=== PATIENT | female | born 1935 | race Caucasian/White ===

== ENCOUNTER 2017-09-23 06:53 | Inpatient (IN) ==
--- NOTE | 2017-09-22 20:33 | Discharge Summary ---
<Blanca Chiu - Last Filed: 09/22/17 20:29> Date of Encounter: 09/22/17 - Discharge Diagnosis (1) Rotator cuff tear arthropathy of right shoulder Priority: Primary Status: Acute (2) Status post reverse arthroplasty of right shoulder Priority: Primary Status: Acute (3) HTN (hypertension) Priority: Secondary Status: Chronic Qualifiers: Hypertension type: essential hypertension Qualified Code(s): I10 - Essential (primary) hypertension (4) Obesity Priority: Secondary Status: Chronic Qualifiers: Obesity type: due to excess calories Obesity classification: unspecified obesity classification Serious obesity comorbidity presence: without serious comorbidity Qualified Code(s): E66.09 - Other obesity due to excess calories (5) Left bundle branch block (LBBB) Priority: Secondary Status: Chronic - Hospital Course Hospital course: Ms. Edwards is a 81 year old female - Time Spent with Patient Total time spent providing and/or coordinating discharge services: - Discharge Medications Home Medications: OxyCODONE Immed Rel [Roxicodone 5 MG] 5 mg PO Q6HR PRN 7 Days #28 tablet [Rx] Acetaminophen [Tylenol] 325 mg PO Q4H PRN 09/23/17 [History] Calcium Carbonate/Vitamin D3 [Calcium 600 + Vit D Tablet] 1 tab PO DAILY [History] Docusate Sodium [Dok] 100 mg PO BID 09/23/17 [History] Lansoprazole [Prevacid] 30 mg PO DAILY 09/23/17 [History] Losartan Potassium [Cozaar] 50 mg PO DAILY 09/23/17 [History] Meloxicam [Mobic] 7.5 mg PO DAILY 09/23/17 [History] hydroCHLOROthiazide [Hydrochlorothiazide] 25 mg PO DAILY 09/23/17 [History] Allergies/Adverse Reactions: 3 Allergy/AdvReac Type Severity Reaction Status Date / Time No Known Allergies Allergy Verified 04/27/16 10:11 Primary care physician: Gina Amaro - Patient Status Disposition: Transfer Inpatient Rehab Fac Condition: Good - Discharge Instructions Follow Up With: Gina Amaro MD [Primary Care Provider] - <Blue Crawley - Last Filed: 09/26/17 05:54> Orders not resulted at time of discharge: Pending orders 09/23/17 US anesthesia pain block [US] Routine 09/23/17 00:01 XR shoulder complete RT [XR] Routine H/H [Hemoglobin and Hematocrit] [HEME] Routine Date of Encounter: 09/26/17 Time of Encounter: 05:54 - Discharge Diagnosis (1) Morbid obesity with BMI of 40.0-44.9, adult Priority: Secondary Status: Chronic (2) Rotator cuff tear arthropathy of right shoulder Priority: Primary Status: Chronic (3) Status post reverse arthroplasty of right shoulder Priority: Primary Status: Acute (4) HTN (hypertension) Priority: Secondary Status: Chronic Qualifiers: Hypertension type: essential hypertension Qualified Code(s): I10 - Essential (primary) hypertension (5) Left bundle branch block (LBBB) Priority: Secondary Status: Chronic - Hospital Course Hospital course: Ms. Edwards is a 81 year old female Status post right total shoulder replacement The patient had an uneventful postoperative course. They received antibiotics and physical therapy and were discharged in stable condition. There will follow -up in the office in 2 weeks. - Time Spent with Patient Total time spent providing and/or coordinating discharge services: Primary care physician: Gina Amaro - Patient Status Functional capacity at discharge: independent ambulation Overall status at discharge: patient is progressing back to baseline
--- NOTE | 2017-09-22 21:33 | Physician Discharge Referral ---
ExtendedCare Referral Info Transfer To: [facility] Provider in Charge: Provider in Charge after Transfer: PCP Institutional Level of Care: Skilled - Diagnosis (1) Rotator cuff tear arthropathy of right shoulder Priority: Primary Status: Acute (2) Status post reverse arthroplasty of right shoulder Priority: Primary Status: Acute (3) HTN (hypertension) Priority: Secondary Status: Chronic (4) Obesity Priority: Secondary Status: Chronic (5) Left bundle branch block (LBBB) Priority: Secondary Status: Chronic Expected Duration of Placement: < 30 days Prognosis: Good Aware of Diagnosis: Patient Aware of Prognosis: Patient - Transfer Medications Prescriptions: OxyCODONE Immed Rel [Roxicodone 5 MG] 5 mg PO Q6HR PRN 7 Days #28 tablet PRN Reason: Pain Home Medications: OxyCODONE Immed Rel [Roxicodone 5 MG] 5 mg PO Q6HR PRN 7 Days #28 tablet [Rx] Allergies/Adverse Reactions: 3 Allergy/AdvReac Type Severity Reaction Status Date / Time No Known Allergies Allergy Verified 04/27/16 10:11 - Respiratory Orders None Smoking Cessation: Smoking cessation has been advised. For more information, call the [place] Tobacco Quit Line at 5-594-NBQW-NOW. - Ancillary Orders May use pressure relief devices daily prn, May go on MICHAEL w/family/respon libertarian w /meds at nurse discretion PRN, May consult with Dentist, Sales Order Administrator, Rewinder Operator Helper PRN - Mobility Orders Ambulate - Rehabiliation Orders Rehab Potential: Good Rehab Orders: ROM Exercises, Evaluation for Physical Therapy, Evaluation for Occupational Therapy - Treatments Skin tear care topically daily PRN per policy List/Other: SHOULDER continuity: Opsite dressing, leave intact until first post-operative visit. If dressing becomes >50% saturated, contact office, remove dressing and place appropriate dressing in its place. Do not allow for dressing to get wet. Shoulder Precautions x 6 weeks. Apply cold therapy wrap 3-6x/day for 20 minutes at a time. Encourage ambulation throughout the day. Use Incentive spirometer 10x/hour. Elevate affected extremity above heart as tolerated. NWB to affected upper extremity x 6 weeks. Will remove brace at first post-operative appointment. OK to remove during PT/ OT and Home exercises. - Diet Orders Regular CERTIFICATION: I certify that the transfer of the above named patient to an Extended Care Facility is necessary for the continuing treatment of the diagnosis listed. The above information is true and accurate reflection of patient's current condition. Confidential - Redisclosure prohibited without a patient's written consent.
--- NOTE | 2017-09-23 07:47 | History & Physical Report ---
Date of Encounter: 09/23/17 Time of Encounter: 07:46 24 Hour HP Update - Instructions Instructions: If the History and Physical is less than 30 days old and was completed prior to A.M. admission and or procedure and has NOT been updated on calendar day of procedure please complete this update prior to performing procedure. - Update Patient reports changes in Medical Condition: No Changes in examination, assessment, or condition: No Changes in Medication: No Preop tests/diagnostics Reviewed: Yes Surgery Remains Indicated: Yes Consent for Planned Operative Procedure(s) Verified: Yes - Pre-Operative Checklist Preoperative Checklist Indicated: No Prophylactic Antibiotic Ordered: Yes Is VTE Prophylaxis Indicated?: Yes
[2017-09-23] MEDS ORDERED: CeFAZolin Syr 2,000MG/20 ML 2,000 MG/20 ML SYRINGE IVPB ONE (07:48)
--- NOTE | 2017-09-23 07:53 | Anesthesia Evaluation PreOp ---
Date of Encounter: 09/23/17 Time of Encounter: 07:50 - Past History Planned Operation: Right Total Shoulder Cardiac History: HTN Pulmonary History: Denies Any Significant HX LEAD PROGRAMMER History: Denies Any Significant HX Other Medical History: Renal (CRI), GERD, Other (Melanoma arm. [place] BMI-44.6) Anesthesia History: No Prior Anesthetic Complications, Past Anesthesia (GB, R, TKR,R. THR, hernia, L. TSR) : No Alcohol Use: none Drug use: none Medications and Allergies OxyCODONE Immed Rel [Roxicodone 5 MG] 5 mg PO Q6HR PRN 7 Days #28 tablet [Rx] Acetaminophen [Tylenol] 325 mg PO Q4H PRN 09/23/17 [History] Calcium Carbonate/Vitamin D3 [Calcium 600 + Vit D Tablet] 1 tab PO DAILY [History] Docusate Sodium [Dok] 100 mg PO BID 09/23/17 [History] Lansoprazole [Prevacid] 30 mg PO DAILY 09/23/17 [History] Losartan Potassium [Cozaar] 50 mg PO DAILY 09/23/17 [History] Meloxicam [Mobic] 7.5 mg PO DAILY 09/23/17 [History] hydroCHLOROthiazide [Hydrochlorothiazide] 25 mg PO DAILY 09/23/17 [History] 3 Allergy/AdvReac Type Severity Reaction Status Date / Time No Known Allergies Allergy Verified 04/27/16 10:11 - Meds/Allergy Pre-op Review Medications Reviewed: Yes Allergies Reviewed: Yes Beta Blockers on Current Med List: No Anesthesia Results - Labs Laboratory Tests 08/01/16 09/10/17 09/10/17 12:51 14:16 14:16 WBC 8.1 Hgb 14.4 Hct 45.3 H Plt Count 213 INR 1.0 Sodium Potassium Chloride Carbon Dioxide BUN Creatinine Glucose 97 BUN/Creatinine Ratio 09/10/17 14:16 WBC Hgb Hct Plt Count INR Sodium 143 Potassium 4.8 Chloride 106 Carbon Dioxide 28 BUN 25 H Creatinine 1.35 H Glucose BUN/Creatinine Ratio 19 ECHO 09/25 EF-55% Mild diastolic dysfunction PFO Mod pulm. HTN Mod TR - Imaging EKG: report reviewed (SINUS RHYTHM LOW QRS VOLTAGE IN EXTREMITY LEADS INFERIOR MYOCARDIAL INFARCTION, PROBABLY OLD) Anesthesia Exam O2 Sat Height 1.55 m Height 1.55 m Weight 107.048 kg Weight 107.048 kg O2 Sat by Pulse Oximetry 93 Vital Signs Temp Pulse Resp BP Pulse Ox 98.1 F 86 18 150/80 93 09/23/17 07:20 09/23/17 07:20 09/23/17 07:20 09/23/17 07:20 09/23/17 07:20 NPO (# of Hours): > 8 hrs Pain Scale: 0 Pain Scale Used: Numeric (1 - 10) - HEENT Pupil (Motor): Pupils equal, EOMI Mallampati: II Teeth: Normal Oral Opening: Greater than 3 - LEAD PROGRAMMER LOC: Oriented LEAD PROGRAMMER Motor: Normal RUE, Normal LUE, Normal RLE, Normal LLE, Normal Face LEAD PROGRAMMER Sensory: Normal: RUE, LUE, RLE, LLE, Face - Cardiac Rhythm: Regular Murmur: None JVD: No Carotid Bruit: No - Pulmonary Breath Sounds: bilateral Clear Respiratory Effort: Symmetrical Anesthesia Assess/Plan ASA Score: 3 Modified Gerald Scale for Level of Consciousness: Cooperative, oriented, and tranquil Anesthetic Plan: General, Regional Autologous Blood: Yes Monitoring Plan: Standard Monitors Recovery Plan: PACU
[2017-09-23] MEDS ORDERED: Plasma-Lyte A (PH 7.4) 1,000 ML IVC SCH (08:00)
[2017-09-23] MEDS ORDERED: Lidocaine -MPF 4% 5 ML AMPUL ONE (08:04)
[2017-09-23] MEDS ORDERED: Lidocaine -MPF 2% 2 ML VIAL ONE (08:04)
[2017-09-23] MEDS ORDERED: Dexamethasone 4 MG/ML VIAL ONE (08:04)
[2017-09-23] MEDS ORDERED: *HR* Succinylcholine 200 MG/10 ML VIAL IVP ONE (08:04)
[2017-09-23] MEDS ORDERED: Ondansetron 4 MG/2 ML VIAL ONE (08:04)
[2017-09-23] MEDS ORDERED: *HR* Propofol 200 MG/20 ML VIAL IVP ONE (08:05)
[2017-09-23] MEDS ORDERED: *HR* Midazolam HCl 2 MG/2 ML VIAL ONE (08:05)
[2017-09-23] MEDS ORDERED: *HR* FentaNYL (PF) 100 MCG/2 ML VIAL ONE (08:05)
[2017-09-23] MEDS ORDERED: ROPIVACAINE HCL/PF 0.5% 30 ML VIAL ONE (08:38)
[2017-09-23] MEDS ORDERED: *HR* PHENYLEPHRINE 1,000 MCG/10 ML SYRINGE IVP ONE (09:17)
[2017-09-23] MEDS ORDERED: Ondansetron 4 MG/2 ML VIAL IVP ONE (09:25)
[2017-09-23] MEDS ORDERED: *HR* Meperidine 25 MG/ML SYRINGE IVP PRN (09:25)
[2017-09-23] MEDS ORDERED: *HR* OxyCODONE Immed Rel 5 MG TABLET PO PRN ×3 (09:25→11:06)
[2017-09-23] MEDS ORDERED: MORPHINE SUL Oral CONC 10 MG/0.5 ML ORAL.SYG SL PRN (09:25)
[2017-09-23] MEDS ORDERED: *HR* Promethazine 25 MG/ML VIAL IVP PRN (09:25)
--- NOTE | 2017-09-23 09:29 | Anesthesia Procedures ---
Date of Encounter: 09/23/17 Time of Encounter: 08:45 Procedures: Anesthesia - Nerve Block Procedure Date: 09/23/17 Time: 08:45 Allergies/Adv Reactions: No Known Allergies Allergy (Verified 04/27/16 10:11) Surgical Procedure: right total shoulder Checklist: Correct Patient Identifier, Correct procedure, History checked Correct side: Right Blood Thinner: No Monitor Applied: EKG, BP, Pulse Oximetry Supplemental Oxygen via Nasal Cannula (L/min): 2 Sedation: Versed (mg): 2 Sedation: Fentanyl (mcg): 50 Indication: Post Op Analgesia Pre-op Neuro Deficits: No Block Type: Supraclavicular Catheter placed: No Sterile Technique: Yes Ultrasound used: Yes Anatomy identified: Yes Visual spread of Local: Yes Neuro Stimulation: No Blood on Needle Aspiration: No Smooth Injection of Local: Yes Pain with Injection of Local: No Prep: Chlorhexadine Needle: 22 x 50 mm Stimuplex Local: Ropivacaine (0.5% Ropi 30ml with 10mg Decadron) Volume (cc): 32 Number of Attempts: 1 Complications: None/effective block Vitals: Vital Signs/O2 Sat, Most Current Temp Pulse Resp BP Pulse Ox 98.1 F 71 18 165/83 97 09/23/17 07:20 09/23/17 08:57 09/23/17 08:57 09/23/17 08:57 09/23/17 08:57
[2017-09-23] MEDS ORDERED: EPHEDrine 50 MG/ML VIAL ONE (09:32)
--- NOTE | 2017-09-23 09:34 | Anesthesia Procedures ---
Date of Encounter: 09/23/17 Time of Encounter: 08:45 Procedures: Anesthesia - Nerve Block Procedure Date: 09/23/17 Time: 08:45 Allergies/Adv Reactions: No Known Allergies Allergy (Verified 04/27/16 10:11) Surgical Procedure: /ru
--- NOTE | 2017-09-23 09:58 | Orthopedic Operative Note ---
Date of procedure: 09/23/17 Pre-op diagnosis: Right shoulder cuff tear arthropathy Post-op diagnosis: same Procedure: Procedure: Total Shoulder Replacment Reverse, right Estimated blood loss: 100 cc Hardware: Metal and polyethylene replacement: Arthrex large glenoid baseplate, 2 4.5 screws. 1 6.5 screw, 42+4 glenosphere, 9 humeral stem, poly insert 3 Exam Under anesthesia: Full motion no instability Procedural Notes: Grade 4 arthritic changes humeral head glenoid socket, rotator cuff tear. Operative procedure: The patient was brought to the operating room and placed on the operating room table. After general anesthesia was administered the operative shoulder was examined. Findings were noted. The patient was placed in the modified beachchair position. All pressure points were padded appropriately. And the head was stabilized in the neutral position. The operative extremity was prepped and draped in the sterile surgical fashion. The patient received IV antibiotics prior to skin incision. A standard deltopectoral approach was made to the operative shoulder. Incision was made to the skin and subcutaneous tissue,hemo stasis was obtained with Bovie cautery. Using careful blunt dissection the cephalic vein was identified and mobilized medially. The deltopectoral interval was developed and the clavipectoral fascia was incised. The subscap was released off the lesser tuberosity and tagged with #2 FiberWire suture subscap was irreparable. The humerus was dislocated patient noted to have irreparable tear supraspinatus tendon, and the humeral cut was made along the anatomic neck. Patient noted to have grade 4 arthritic changes humeral head. Anterior and posterior Bankart retractors were placed to expose the glenoid. Patient noted to have grade 4 arthritic changes glenoid socket. The glenoid guide was seated and the centering hole was made. It was reamed with the appropriate reamer. The large baseplate was seated and secured with (2) 4.5 screws and one 6.5 screw. The baseplate was irrigated and dried and the 42+4 Glenosphere was seated and secured with the Lennon taper. The Lennon taper was tested and found to be secure the humerus was redislocated and prepared with the diaphyseal reamers, followed by a broaching process up to the appropriate size 9 in the patient's anatomic version. The metaphyseal reamer was then utilized. Trial reduction found the shoulder to be relocatable. Trial components were removed and The appropriate 9 stem was impacted in place in the patient's anatomic version. Trial reduction found the shoulder to be relocatable and stable with the appropriate 3 Thuy Trial component was removed and the real implant was seated and secured the shoulder was reduced. The shoulder had excellent motion and excellent stability and no evidence of dislocation. The deep tissue was irrigated with pulse irrigation. The shoulder was closed by the PA. The deltopectoral interval was closed with a running #1 PDS suture, subcutaneous tissue was irrigated and closed with 0 PDS suture, the skin was closed with Dermabond. The patient was placed in a sterile dressing, abduction brace and extubated. The patient was then transferred to the recovery room in stable condition. Anesthesia: GENESIS Surgeon: Blue Crawley Was there an assistant editor present: Yes Band Sawmill Operator: Jenny Mclaughlin Estimated blood loss (cc): 100 Condition: stable Disposition: PACU
--- NOTE | 2017-09-23 10:44 | Anesthesia Evaluation Post Op ---
Date of Encounter: 09/23/17 Time of Encounter: 10:43 - Vital Signs Vital Signs: Vital Signs/O2 Sat, Most Current Temp Pulse Resp BP Pulse Ox 97.4 F L 83 18 140/69 96 09/23/17 10:17 09/23/17 10:37 09/23/17 10:37 09/23/17 10:37 09/23/17 10:37 - Lungs Lungs: Clear Ascult./Percussion - Airway Airway: Non-obstructed - Cardiovascular Regular Rate - Mental Status Mental Status: Alert & Oriented, Answers Appropriately - Pain Pain Scale: 0 Pain Scale used: Numeric (1 - 10) - Nausea Vomiting Nausea Vomiting: Not Present - Hydration Hydration: Ice chips, Has not voided - Discharge PostOp Status: Transfer Patient to floor
[2017-09-23 10:46] LABS: Hematocrit 41.9 % (35.3-44.9); Hemoglobin 13.8 g/dL (11.5-15.4)
[2017-09-23] MEDS ORDERED: Ondansetron 4 MG/2 ML VIAL IVP PRN (11:06)
[2017-09-23] MEDS ORDERED: Naloxone 0.4 MG/ML INJ IVP PRN (11:06)
[2017-09-23] MEDS ORDERED: MOM Conc 10 ML UD.LIQ PO PRN (11:06)
[2017-09-23] MEDS ORDERED: Temazepam 15 MG CAPSULE PO PRN (11:06)
[2017-09-23] MEDS ORDERED: Sennosides 8.6 MG TABLET PO PRN (11:06)
[2017-09-23] MEDS ORDERED: Ringers Solution, Lactated 1,000 ML IVC SCH (11:06)
[2017-09-23] MEDS: hydroCHLOROthiazide 25 MG TABLET PO SCH (13:02)
[2017-09-23] MEDS: CeFAZolin Premix DUPLEX 2,000 MG/50 ML BAG IVPB SCH ×2 (14:43→23:20)
[2017-09-23] MEDS ORDERED: *HR* Enoxaparin 30 MG/0.3 ML SYRINGE SQ SCH (18:00)
[2017-09-23] MEDS: *HR* Enoxaparin 30 MG/0.3 ML SYRINGE SQ SCH (18:12)
[2017-09-24] MEDS: *HR* Enoxaparin 30 MG/0.3 ML SYRINGE SQ SCH ×2 (04:44→16:45)
--- NOTE | 2017-09-24 06:24 | Orthopedics Progress Note ---
Date of Encounter: 09/24/17 Time of Encounter: 06:23 - Assessment and Plan (1) Morbid obesity with BMI of 40.0-44.9, adult Current Visit: Yes Status: Chronic (2) Rotator cuff tear arthropathy of right shoulder Current Visit: No Status: Chronic (3) Status post reverse arthroplasty of right shoulder Current Visit: No Status: Acute (4) HTN (hypertension) Current Visit: No Status: Chronic Qualifiers: Hypertension type: essential hypertension Qualified Code(s): I10 - Essential (primary) hypertension (5) Left bundle branch block (LBBB) Current Visit: No Status: Chronic Subjective Interval history: Patient was seen this morning doing well without complaints. Afebrile vital signs stable. Operative extremity: Neurovascularly intact Dressing clean dry and intact Calves nontender Assessment and plan: Continue with postoperative care Hematocrit 41 Objective Vital signs: Vital Signs Temp Pulse Resp BP Pulse Ox 09/24/17 03:50 97.6 F 78 18 127/76 95 09/24/17 00:21 98.3 F 79 18 114/71 93 09/23/17 19:09 97.7 F 99 16 124/82 93 09/23/17 14:39 97.9 F 87 16 136/77 93 09/23/17 13:40 98.4 F 89 16 147/79 90 09/23/17 13:09 98.0 F 99 16 142/84 93 09/23/17 12:04 97.1 F L 84 16 121/85 95 09/23/17 11:32 97.6 F 90 16 138/80 94 09/23/17 11:28 95 09/23/17 10:47 97.2 F L 90 18 126/86 95 09/23/17 10:37 83 18 140/69 96 09/23/17 10:27 96 16 144/74 95 09/23/17 10:17 97.4 F L 97 14 110/94 96 09/23/17 08:57 71 18 165/83 97 09/23/17 08:42 75 18 168/84 96 09/23/17 07:20 98.1 F 86 18 150/80 93 Intake and Output 09/23/17 09/23/17 09/24/17 15:59 23:59 07:59 Intake Total 20 / 20 100 / 100 100 / 100 Output Total 100 / 100 0 / 0 0 / 0 Balance -80 / -80 100 / 100 100 / 100 Intake: IV Fluids 20 / 20 100 / 100 Ancef Premix DUPLEX 2,000 mg In 100 / 100 50 ml @ 100 mls/hr IVPB Q8HR TIESHA Rx#:[id number] Ancef Syringe 2,000 MG/20 ML 2, 20 / 20 000 mg In 20 ml @ 200 mls/hr IVPB PREOP ONE Rx#:[id number] Oral 0 / 0 0 / 0 100 / 100 Output: Urine 0 / 0 0 / 0 0 / 0 Estimated Blood Loss 100 / 100 Other: # Voids 1 1 Blood Glucose* 209 - Labs CBC & BMP: 09/23/17 10:29 Labs: Abnormal lab results POC Glucose 209 (58-89) H 09/23/17 20:29 - VTE Documentation of Mechanical Device: Venous foot pump, device Consult Discharge Plan - Plan Referrals: Gina Amaro MD [Primary Care Provider] -
[2017-09-24 06:35] LABS: Hematocrit 39.5 % (35.3-44.9)
[2017-09-24] MEDS: Cholecalciferol (D-3) 1,000 UNIT TABLET PO SCH (09:27)
[2017-09-24] MEDS: hydroCHLOROthiazide 25 MG TABLET PO SCH (09:28)
--- NOTE | 2017-09-24 15:27 | Event Note ---
Date of Encounter: 09/24/17 Time of Encounter: 12:00 PCR - POD#1 R TSR-r. Patient seen at bedside. Labs reviewed. Pain control: adequate, limited use of pain medication Participating in PT. All questions and concerns addressed. Educated on use of incentive spirometer. Encouraged ambulation and proper hydration. Patient educated on post-operative restrictions and post-operative care. Addressed: D/C Discharge plan: - [facility], maybe Saturday if auth approves
[2017-09-25] MEDS: *HR* Enoxaparin 30 MG/0.3 ML SYRINGE SQ SCH ×2 (05:35→18:11)
[2017-09-25 06:32] LABS: Hematocrit 39.1 % (35.3-44.9); Hemoglobin 12.6 g/dL (11.5-15.4)
--- NOTE | 2017-09-25 06:32 | Orthopedics Progress Note ---
Date of Encounter: 09/25/17 Time of Encounter: 06:32 - Assessment and Plan (1) Morbid obesity with BMI of 40.0-44.9, adult Current Visit: Yes Status: Chronic (2) Rotator cuff tear arthropathy of right shoulder Current Visit: No Status: Chronic (3) Status post reverse arthroplasty of right shoulder Current Visit: No Status: Acute (4) HTN (hypertension) Current Visit: No Status: Chronic Qualifiers: Hypertension type: essential hypertension Qualified Code(s): I10 - Essential (primary) hypertension (5) Left bundle branch block (LBBB) Current Visit: No Status: Chronic Subjective Interval history: Patient was seen this morning doing well without complaints. Afebrile vital signs stable. Operative extremity: Neurovascularly intact Dressing clean dry and intact Calves nontender Assessment and plan: Continue with postoperative care Hematocrit 39 discharge tomorrow Objective Vital signs: Vital Signs Temp Pulse Resp BP Pulse Ox 09/25/17 06:31 98.4 F 80 16 133/89 93 09/25/17 02:56 97.7 F 80 16 132/68 94 09/25/17 00:11 94 09/24/17 23:24 98.1 F 80 20 123/85 94 09/24/17 20:14 95 09/24/17 19:17 97.9 F 90 20 119/61 95 09/24/17 15:39 98.4 F 76 16 131/79 96 09/24/17 10:56 97.7 F 81 15 126/75 97 09/24/17 07:09 97.8 F 79 14 124/82 96 Intake and Output 09/24/17 09/24/17 09/25/17 15:59 23:59 07:59 Intake Total 600 / 600 840 / 840 300 / 300 Balance 600 / 600 840 / 840 300 / 300 Intake: Oral 600 / 600 840 / 840 300 / 300 Other: Meal Lunch Percent of Meal Consumed 75% 70% # Voids 2 1 1 - Labs CBC & BMP: 09/24/17 05:41 Labs: Abnormal lab results POC Glucose 209 (58-89) H 09/23/17 20:29 - VTE Documentation of Mechanical Device: Venous foot pump, device Consult Discharge Plan - Plan Referrals: Gina Amaro MD [Primary Care Provider] -
[2017-09-25] MEDS: hydroCHLOROthiazide 25 MG TABLET PO SCH (08:37)
[2017-09-25] MEDS: Cholecalciferol (D-3) 1,000 UNIT TABLET PO SCH (08:37)
[2017-09-26] MEDS: *HR* Enoxaparin 30 MG/0.3 ML SYRINGE SQ SCH (05:36)
--- NOTE | 2017-09-26 05:55 | Orthopedics Progress Note ---
Date of Encounter: 09/26/17 Time of Encounter: 05:55 - Assessment and Plan (1) Morbid obesity with BMI of 40.0-44.9, adult Current Visit: Yes Status: Chronic (2) Rotator cuff tear arthropathy of right shoulder Current Visit: No Status: Chronic (3) Status post reverse arthroplasty of right shoulder Current Visit: No Status: Acute (4) HTN (hypertension) Current Visit: No Status: Chronic Qualifiers: Hypertension type: essential hypertension Qualified Code(s): I10 - Essential (primary) hypertension (5) Left bundle branch block (LBBB) Current Visit: No Status: Chronic Subjective Interval history: Patient was seen this morning doing well without complaints. Afebrile vital signs stable. Operative extremity: Neurovascularly intact Dressing clean dry and intact Calves nontender Assessment and plan: Continue with postoperative care Hematocrit 39 discharge today Objective Vital signs: Vital Signs Temp Pulse Resp BP Pulse Ox 09/26/17 03:30 98.0 F 85 16 121/69 95 09/26/17 01:14 95 09/25/17 22:40 98.1 F 81 16 115/60 94 09/25/17 19:55 95 09/25/17 18:54 98.3 F 85 16 137/82 95 09/25/17 10:27 97.5 F L 86 15 135/87 94 09/25/17 06:31 98.4 F 80 16 133/89 93 Intake and Output 09/25/17 09/25/17 09/26/17 15:59 23:59 07:59 Intake Total 640 / 640 500 / 500 Output Total 0 / 0 Balance 640 / 640 500 / 500 Intake: Oral 640 / 640 500 / 500 Output: Urine 0 / 0 Other: Meal Dinner Percent of Meal Consumed 100% # Voids 1 1 1 - Labs CBC & BMP: 09/25/17 05:29 Labs: Abnormal lab results POC Glucose 106 (58-89) H 09/25/17 07:49 - VTE Documentation of Mechanical Device: Venous foot pump, device Consult Discharge Plan - Plan Referrals: Gina Amaro MD [Primary Care Provider] -
[2017-09-26] MEDS: Cholecalciferol (D-3) 1,000 UNIT TABLET PO SCH (09:06)
[2017-09-26] MEDS: hydroCHLOROthiazide 25 MG TABLET PO SCH (09:07)
[2017-09-26 17:19] VITALS: BP 124/63
== END 2017-09-26 17:38 | DRG 483 ==
LOC: SAMDAY 06:53 → 3NENU 11:06
PROVIDERS: ADMIT Orthopaedic Surgery; ATTEND Orthopaedic Surgery